=== PATIENT | male | born 1985 | race Caucasian/White ===

== ENCOUNTER 2018-02-21 09:39 | Emergency (ER) | payer OTHER ==
[~2018-02-21] VITALS: Ht 180.3 cm; Wt 72.6 kg
[~2018-02-21 09:39] MED LIST: ADDERALL 30 MG30 MG PO; AMOXICILLIN500 M1 PO; AZITHROMYCIN 2250 MG PO; BACTRIM DS TAB1 EACH PO; IBUPROFEN 800800 M1 PO; IBUPROFEN 800800 MG PO; NORCO 5-325 TA1 EACH PO; PREDNISONE 20 M20 M1 PO; PROAIR HFA8.5 GM IH; TESSALON200 MG PO; ULTRAM 50MG TAB50 MG PO; ZOFRAN ODT4 MG PO; ZPAK PO
[2018-02-21] MEDS ORDERED: ZPAK PO (10:20)
[2018-02-21] MEDS ORDERED: PROAIR HFA8.5 GM INH (10:20)
[2018-02-21 10:33] VITALS: BP 124/80
== END 2018-02-21 10:35 | disposition home or self-care (01) ==
LOC: M.ERS 09:39
DX: J06.9 Acute upper respiratory infection, unspecified (principal); F90.9 Attention-deficit hyperactivity disorder, unspecified type